=== PATIENT | male | born 1955 | race Caucasian/White ===

== ENCOUNTER 2020-05-15 06:35 | Inpatient (IN) ==
[2020-05-15] MEDS ORDERED: Papaverine 60 MG/2 ML VIAL IVP ONE (06:44)
[2020-05-15] MEDS ORDERED: *HR* FentaNYL (PF) 1,000 MCG/20 ML VIAL ONE (07:04)
[2020-05-15] MEDS ORDERED: *HR* Midazolam HCl 5 MG/5 ML VIAL IVP ONE (07:04)
[2020-05-15] MEDS ORDERED: *HR* Propofol 200 MG/20 ML VIAL IVP ONE (07:04)
[2020-05-15] MEDS ORDERED: *HR* Magnesium Sulfate 1 GM/2 ML VIAL ONE (07:05)
[2020-05-15] MEDS ORDERED: *HR* PHENYLEPHRINE 1,000 MCG/10 ML SYRINGE IVP ONE (07:05)
[2020-05-15] MEDS ORDERED: Famotidine 20 MG/2 ML VIAL ONE (07:05)
[2020-05-15] MEDS ORDERED: Dexamethasone 4 MG/ML VIAL ONE (07:05)
[2020-05-15] MEDS ORDERED: *HR* Rocuronium Bromide 50 MG/5 ML VIAL ONE ×3 (07:05→10:41)
[2020-05-15] MEDS ORDERED: Lidocaine 2% Syringe 100 MG/5 ML ONE (07:06)
[2020-05-15] MEDS ORDERED: Tranexamic Acid 1,000 MG/10 ML VIAL ONE (07:06)
[2020-05-15] MEDS ORDERED: Chlorhexidine Rinse 15 ML MOUTHWASH MM ONE (07:15)
[2020-05-15] MEDS ORDERED: Lidocaine -MPF 2% 2 ML VIAL ONE (07:35)
[2020-05-15] MEDS ORDERED: Dextrose 50 % in Water (Vial) 30 ML, Sodium Bicarbonate 20 MEQ, Lidocaine 1% 5 ML, Insu... TH ONE ×3 (07:45)
[2020-05-15] MEDS ORDERED: Heparin 15,000 UNIT in 0.9 % Sodium Chloride 500 ML IV ONE (07:45)
[2020-05-15] MEDS ORDERED: Norepinephrine 4 MG in 0.9 % Sodium Chloride 250 ML IVC PRN (07:45)
[2020-05-15] MEDS ORDERED: Insulin Human Regular 100 UNIT in 0.9 % Sodium Chloride 100 ML IV PRN (07:45)
[2020-05-15] MEDS ORDERED: Dextrose 50 % in Water (Vial) 30 ML, Sodium Bicarbonate 20 MEQ, Potassium Chloride 15 M... TH ONE (07:45)
[2020-05-15] MEDS: Ringers Solution, Lactated 1,000 ML IVC SCH (07:49)
[2020-05-15 08:37] LABS: ABG Base Excess -5 mEq/L (-2 to 3); ABG Chloride 103 mEq/L (98-107); ABG Glucose 155 mg/dL (60-95); ABG HCO3 20 mEq/L (21-27); ABG Oxygen Saturation 100 % (95-98); ABG PCO2 36 mmHg (35-45); ABG PH 7.36 pH Units (7.32-7.45); ABG PO2 509 mmHg (85-104); ABG TCO2 21 mEq/L (20-26)
[2020-05-15] MEDS: CeFAZolin Syr 2,000MG/20 ML 2,000 MG/20 ML SYRINGE IVPB ONE ×2 (08:50→10:56)
[2020-05-15 09:51] LABS: ABG Base Excess -5 mEq/L (-2 to 3); ABG Chloride 106 mEq/L (98-107); ABG Glucose 152 mg/dL (60-95); ABG HCO3 22 mEq/L (21-27); ABG Ionized Calcium 0.96 mmol/L (1.15-1.35); ABG Oxygen Saturation 99 % (95-98); ABG PCO2 44 mmHg (35-45); ABG PO2 130 mmHg (85-104); ABG TCO2 23 mEq/L (20-26)
[2020-05-15 10:28] LABS: ABG Base Excess -4 mEq/L (-2 to 3); ABG Chloride 98 mEq/L (98-107); ABG Glucose 223 mg/dL (60-95); ABG HCO3 20 mEq/L (21-27); ABG PCO2 32 mmHg (35-45); ABG PO2 > 630 mmHg (85-104); ABG TCO2 21 mEq/L (20-26)
[2020-05-15] MEDS ORDERED: Protamine Sulfate 250 MG/25 ML VIAL IVP ONE (10:36)
[2020-05-15] MEDS ORDERED: Albumin Human 5% 12.5 GM/250 ML IV.SOLN ONE (10:43)
[2020-05-15 10:53] LABS: ABG Base Excess -1 mEq/L (-2 to 3); ABG Chloride 97 mEq/L (98-107); ABG Glucose 191 mg/dL (60-95); ABG HCO3 24 mEq/L (21-27); ABG Oxygen Saturation 100 % (95-98); ABG PCO2 41 mmHg (35-45); ABG PH 7.38 pH Units (7.32-7.45); ABG PO2 583 mmHg (85-104); ABG TCO2 25 mEq/L (20-26)
[2020-05-15 11:19] LABS: ABG Base Excess -2 mEq/L (-2 to 3); ABG Chloride 99 mEq/L (98-107); ABG Glucose 144 mg/dL (60-95); ABG HCO3 24 mEq/L (21-27); ABG Ionized Calcium 1.13 mmol/L (1.15-1.35); ABG Oxygen Saturation 100 % (95-98); ABG PCO2 42 mmHg (35-45); ABG PH 7.36 pH Units (7.32-7.45); ABG PO2 547 mmHg (85-104); ABG TCO2 25 mEq/L (20-26)
[2020-05-15 11:38] LABS: ABG Base Excess -1 mEq/L (-2 to 3); ABG Chloride 99 mEq/L (98-107); ABG Glucose 128 mg/dL (60-95); ABG HCO3 25 mEq/L (21-27); ABG Ionized Calcium 1.05 mmol/L (1.15-1.35); ABG Oxygen Saturation 100 % (95-98); ABG PCO2 43 mmHg (35-45); ABG PH 7.37 pH Units (7.32-7.45); ABG PO2 556 mmHg (85-104); ABG TCO2 26 mEq/L (20-26)
[2020-05-15] MEDS ORDERED: Protamine Sulfate 50 MG/5 ML VIAL IVP ONE (12:02)
[2020-05-15 12:10] LABS: ABG Base Excess -3 mEq/L (-2 to 3); ABG Chloride 105 mEq/L (98-107); ABG Glucose 133 mg/dL (60-95); ABG HCO3 22 mEq/L (21-27); ABG Oxygen Saturation 99 % (95-98); ABG PCO2 42 mmHg (35-45); ABG PH 7.33 pH Units (7.32-7.45); ABG PO2 138 mmHg (85-104); ABG TCO2 24 mEq/L (20-26)
[2020-05-15] MEDS ORDERED: *HR* Dextrose 50 % in Water (Vial) 50 ML VIAL IVP PRN (12:29)
[2020-05-15] MEDS ORDERED: *HR* Promethazine 25 MG/ML VIAL IM PRN (12:29)
[2020-05-15] MEDS ORDERED: Albumin Human 5% 12.5 GM/250 ML IV.SOLN IVPB PRN (12:29)
[2020-05-15] MEDS ORDERED: Insulin Regular, Human 100 UNIT/ML IV PRN (12:29)
[2020-05-15] MEDS ORDERED: Ondansetron 4 MG/2 ML VIAL IVP PRN (12:29)
[2020-05-15] MEDS ORDERED: Naloxone 0.4 MG/ML INJ IVP PRN (12:29)
[2020-05-15] MEDS ORDERED: Potassium Chloride 40 MEQ/200 ML BAG IVPB PRN (12:29)
[2020-05-15] MEDS ORDERED: Acetaminophen 325 MG TABLET PO PRN (12:29)
[2020-05-15] MEDS: Norepinephrine 4 MG/254 ML IV.SOLN IVC SCH (12:45)
[2020-05-15 13:04] LABS: ABG Base Excess -1 mEq/L (-2 to 3); ABG HCO3 26 mEq/L (21-27); ABG Oxygen Saturation 92 % (95-98); ABG PCO2 57 mmHg (35-45); ABG PH 7.27 pH Units (7.32-7.45); ABG PO2 75 mmHg (85-104); ABG TCO2 28 mEq/L (20-26); Blood Gas Modality ASSIST CONTROL; Blood Gas VT 450 cc
[2020-05-15] MEDS: Insulin Human Regular 100 UNIT in 0.9 % Sodium Chloride 100 ML IVC SCH (13:15)
[2020-05-15] MEDS: 0.9 % Sodium Chloride 1,000 ML IVC SCH (13:15)
[2020-05-15] MEDS: niCARdipine 20 MG/200 ML MLS IVC SCH ×4 (13:15→23:04)
[2020-05-15 13:17] LABS: Basophils % 0.3 %; Eosinophils % 0.2 %; Hematocrit 30.4 % (37.5-50.1); Hemoglobin 10.7 g/dL (12.9-16.9); Immature Granulocytes % 0.9 % (0-4); Lymphocytes # 1.5 K/mcL (0.6-4.6); Lymphocytes % 12.5 %; Mean Corpuscular HGB Conc 35.2 g/dL (31.6-35.5); Mean Corpuscular Hemoglobin 35.1 pg (28.0-33.3); Mean Corpuscular Volume 99.7 fL (83.0-100.0); Mean Platelet Volume 8.5 fL (9.4-12.4); Monocytes # 0.8 K/mcL (0.0-1.3); Monocytes % 6.7 %; Neutrophils # 9.2 K/mcL (1.6-8.9); Platelet Count 86 K/mcL (140-400); Red Blood Count 3.05 M/mcL (4.19-5.50); Red Cell Distribution Width 12.8 % (11.5-14.5); Segmented Neutrophils % 79.4 %; White Blood Count 11.6 K/mcL (4.3-11.1)
[2020-05-15 13:23] LABS: INR 1.6; Prothrombin Time 18.6 Seconds (9.4-12.1)
[2020-05-15 13:26] LABS: Activated Partial Thrombo Time 28.3 Seconds (26.0-36.0)
[2020-05-15 13:34] LABS: BUN/Creatinine Ratio 11 (6-26); Blood Urea Nitrogen 9 mg/dL (8-23); Calcium 8.7 mg/dL (8.6-10.3); Carbon Dioxide 26 mEq/L (23-29); Chloride 106 mEq/L (98-107); Glucose 120 mg/dL (70-105); Magnesium 2.7 mg/dL (1.6-2.6); Osmolality,Calculated 282 (280-300); Potassium 4.3 mEq/L (3.5-5.1); Sodium 136 mEq/L (136-145); eGFR For African Americans > 60 (> 60); eGFR For Non-African Americans > 60 (> 60)
[2020-05-15] MEDS ORDERED: *HR* Heparin 10,000 UNIT/10 ML VIAL IVP ONE (13:40)
[2020-05-15] MEDS ORDERED: *HR* Magnesium Sulfate 2 GM/50 ML PIGGYBACK IVPB ONE (13:40)
[2020-05-15] MEDS ORDERED: Albumin Human 25% 25 GM/100 ML IV.SOLN IVPB ONE (13:40)
[2020-05-15] MEDS ORDERED: Mannitol 25% vial 12.5 GM/50 ML VIAL IVP ONE (13:40)
[2020-05-15] MEDS ORDERED: Heparin 1,000 UNITS/500 mL IV.SOLN IVC ONE (13:40)
[2020-05-15] MEDS ORDERED: D5% in Water 250 ML IV BAG IV ONE (13:40)
[2020-05-15] MEDS ORDERED: Tranexamic Acid 1,000 MG/10 ML VIAL IVP ONE (13:40)
[2020-05-15] MEDS ORDERED: *HR* Phenylephrine 10 MG/ML VIAL IVC ONE (13:40)
[2020-05-15] MEDS ORDERED: Lidocaine 2% Syringe 100 MG/5 ML IVP ONE (13:40)
[2020-05-15] MEDS: *HR* FentaNYL (PF) 100 MCG/2 ML VIAL IVP PRN ×4 (15:02→22:01)
[2020-05-15] MEDS: *HR* OxyCODONE/APAP 5/325 TABLET PO PRN ×3 (15:03→23:48)
[2020-05-15] MEDS: CeFAZolin 2 GM/120 ML BAG IVPB SCH ×2 (16:19→23:48)
[2020-05-15 16:27] LABS: ABG Base Excess 0 mEq/L (-2 to 3); ABG HCO3 25 mEq/L (21-27); ABG Oxygen Saturation 96 % (95-98); ABG PCO2 45 mmHg (35-45); ABG PH 7.36 pH Units (7.32-7.45); ABG PO2 88 mmHg (85-104); ABG TCO2 27 mEq/L (20-26); Blood Gas Modality CPAP/PS; Blood Gas Pressure Support 5 cm H2O
[2020-05-15 16:47] LABS: Hematocrit 31.5 % (37.5-50.1); Hemoglobin 11.2 g/dL (12.9-16.9)
[2020-05-15 17:44] LABS: ABG Base Excess 0 mEq/L (-2 to 3); ABG HCO3 24 mEq/L (21-27); ABG Oxygen Saturation 95 % (95-98); ABG PCO2 39 mmHg (35-45); ABG PO2 76 mmHg (85-104); ABG TCO2 25 mEq/L (20-26)
[2020-05-15] MEDS: Chlorhexidine Rinse 15 ML MOUTHWASH MM SCH (20:06)
[2020-05-16] MEDS: niCARdipine 20 MG/200 ML MLS IVC SCH ×3 (02:58→07:37)
[2020-05-16] MEDS: Ringers Solution, Lactated 1,000 ML IVC SCH (03:05)
[2020-05-16] MEDS: *HR* FentaNYL (PF) 100 MCG/2 ML VIAL IVP PRN (03:10)
[2020-05-16] MEDS: 0.9 % Sodium Chloride 1,000 ML IVC SCH (03:31)
[2020-05-16] MEDS: *HR* OxyCODONE/APAP 5/325 TABLET PO PRN ×5 (03:46→20:41)
[2020-05-16 04:16] LABS: Basophils % 0.1 %; Hemoglobin 9.8 g/dL (12.9-16.9); Mean Corpuscular Volume 100.4 fL (83.0-100.0)
[2020-05-16 04:18] LABS: Immature Granulocytes % 0.5 % (0-4); Immature Platelets 1.4 % (1.1-6.1); Lymphocytes # 1.1 K/mcL (0.6-4.6); Lymphocytes % 9.2 %; Mean Corpuscular Hemoglobin 35.1 pg (28.0-33.3); Mean Platelet Volume 8.8 fL (9.4-12.4); Monocytes # 1.1 K/mcL (0.0-1.3); Monocytes % 9.3 %; Neutrophils # 9.9 K/mcL (1.6-8.9); Platelet Count 127 K/mcL (140-400); Red Blood Count 2.79 M/mcL (4.19-5.50); Segmented Neutrophils % 80.9 %; White Blood Count 12.2 K/mcL (4.3-11.1)
[2020-05-16 05:38] LABS: BUN/Creatinine Ratio 15 (6-26); Blood Urea Nitrogen 13 mg/dL (8-23); Calcium 8.1 mg/dL (8.6-10.3); Carbon Dioxide 25 mEq/L (23-29); Chloride 104 mEq/L (98-107); Glucose 109 mg/dL (70-105); Osmolality,Calculated 279 (280-300); Potassium 4.3 mEq/L (3.5-5.1); Sodium 134 mEq/L (136-145); eGFR For African Americans > 60 (> 60); eGFR For Non-African Americans > 60 (> 60)
[2020-05-16] MEDS: Norepinephrine 4 MG/254 ML IV.SOLN IVC SCH (07:01)
[2020-05-16] MEDS: Chlorhexidine Rinse 15 ML MOUTHWASH MM SCH ×2 (07:36→20:42)
[2020-05-16] MEDS: Insulin Human Regular 100 UNIT in 0.9 % Sodium Chloride 100 ML IVC SCH (07:37)
[2020-05-16] MEDS ORDERED: Aspirin Enteric Coated 81 MG Tablet PO SCH (09:00)
[2020-05-16] MEDS ORDERED: Pantoprazole 40 MG VIAL IVP SCH (09:00)
[2020-05-16] MEDS ORDERED: Naloxone 0.4 MG/ML INJ IVP PRN (09:22)
[2020-05-16] MEDS ORDERED: *HR* FentaNYL (PF) 100 MCG/2 ML VIAL IVP PRN (09:22)
[2020-05-16] MEDS ORDERED: *HR* Promethazine 25 MG/ML VIAL IM PRN (09:22)
[2020-05-16] MEDS ORDERED: Acetaminophen 325 MG TABLET PO PRN (09:22)
[2020-05-16] MEDS ORDERED: D5% in Water 1,000 ML IVC PRN (09:22)
[2020-05-16] MEDS ORDERED: Dextrose Gel 15 GM/37.5 ML TUBE PO PRN ×2 (09:22)
[2020-05-16] MEDS ORDERED: *HR* Dextrose 50 % in Water (Vial) 50 ML VIAL IVP PRN (09:22)
[2020-05-16] MEDS ORDERED: Ondansetron 4 MG/2 ML VIAL IVP PRN (09:22)
[2020-05-16] MEDS: Ketorolac 15 MG/ML VIAL IVP SCH ×3 (11:05→23:23)
[2020-05-16] MEDS: Insulin LISPRO 300 UNITS/3 ML VIAL SUBQ SCH ×3 (11:05→20:49)
[2020-05-16] MEDS ORDERED: Ketorolac 15 MG/ML VIAL IVP SCH (12:00)
[2020-05-16] MEDS: *HR* Heparin 5,000 UNIT/ML VIAL SQ SCH (17:57)
[2020-05-17] MEDS: *HR* OxyCODONE/APAP 5/325 TABLET PO PRN (03:36)
[2020-05-17 03:56] LABS: Basophils % 0.3 %; Eosinophils % 0.1 %; Hematocrit 24.8 % (37.5-50.1); Hemoglobin 8.7 g/dL (12.9-16.9); Immature Granulocytes % 0.5 % (0-4); Lymphocytes # 2.5 K/mcL (0.6-4.6); Lymphocytes % 18.5 %; Mean Corpuscular HGB Conc 35.1 g/dL (31.6-35.5); Mean Corpuscular Hemoglobin 35.1 pg (28.0-33.3); Mean Platelet Volume 9.2 fL (9.4-12.4); Monocytes # 1.2 K/mcL (0.0-1.3); Monocytes % 8.8 %; Neutrophils # 9.6 K/mcL (1.6-8.9); Platelet Count 102 K/mcL (140-400); Red Blood Count 2.48 M/mcL (4.19-5.50); Red Cell Distribution Width 13.2 % (11.5-14.5); Segmented Neutrophils % 71.8 %; White Blood Count 13.3 K/mcL (4.3-11.1)
[2020-05-17 04:15] LABS: BUN/Creatinine Ratio 26 (6-26); Blood Urea Nitrogen 29 mg/dL (8-23); Calcium 8.3 mg/dL (8.6-10.3); Carbon Dioxide 25 mEq/L (23-29); Chloride 102 mEq/L (98-107); Glucose 184 mg/dL (70-105); Osmolality,Calculated 287 (280-300); Potassium 4.6 mEq/L (3.5-5.1); Sodium 133 mEq/L (136-145); eGFR For African Americans > 60 (> 60); eGFR For Non-African Americans > 60 (> 60)
[2020-05-17] MEDS: *HR* Heparin 5,000 UNIT/ML VIAL SQ SCH ×2 (05:43→17:10)
[2020-05-17] MEDS: Ketorolac 15 MG/ML VIAL IVP SCH ×4 (05:43→23:57)
[2020-05-17] MEDS: Aspirin Enteric Coated 81 MG Tablet PO SCH (07:24)
[2020-05-17] MEDS: Pantoprazole 40 MG VIAL IVP SCH (07:24)
[2020-05-17] MEDS: Chlorhexidine Rinse 15 ML MOUTHWASH MM SCH ×2 (07:24→20:41)
[2020-05-17] MEDS: Insulin LISPRO 300 UNITS/3 ML VIAL SUBQ SCH ×4 (07:24→20:41)
[2020-05-17] MEDS ORDERED: Amiodarone Premix 150 MG/100 ML BAG IVPB ONE (21:05)
[2020-05-17] MEDS ORDERED: Amiodarone Premix 360 MG/200 ML BAG IVC ONE (21:05)
[2020-05-17] MEDS: Amiodarone Premix 360 MG/200 ML BAG IVC SCH (22:15)
[2020-05-17] MEDS ORDERED: 0.9 % Sodium Chloride 500 ML IVC ONE (22:24)
[2020-05-17] MEDS ORDERED: 0.9 % Sodium Chloride 500 ML ONE (22:25)
[2020-05-17] MEDS ORDERED: 0.9 % Sodium Chloride 1,000 ML IVC SCH (23:30)
[2020-05-18 01:50] LABS: Basophils % 0.4 %; Eosinophils % 0.1 %; Hematocrit 24.5 % (37.5-50.1); Hemoglobin 8.4 g/dL (12.9-16.9); Immature Granulocytes % 0.6 % (0-4); Lymphocytes # 1.9 K/mcL (0.6-4.6); Lymphocytes % 16.9 %; Mean Corpuscular HGB Conc 34.3 g/dL (31.6-35.5); Mean Corpuscular Hemoglobin 35.4 pg (28.0-33.3); Mean Corpuscular Volume 103.4 fL (83.0-100.0); Mean Platelet Volume 9.3 fL (9.4-12.4); Monocytes # 0.7 K/mcL (0.0-1.3); Monocytes % 6.4 %; Neutrophils # 8.5 K/mcL (1.6-8.9); Platelet Count 132 K/mcL (140-400); Red Blood Count 2.37 M/mcL (4.19-5.50); Red Cell Distribution Width 13.3 % (11.5-14.5); Segmented Neutrophils % 75.6 %; White Blood Count 11.2 K/mcL (4.3-11.1)
[2020-05-18 02:09] LABS: BUN/Creatinine Ratio 22 (6-26); Blood Urea Nitrogen 24 mg/dL (8-23); Carbon Dioxide 25 mEq/L (23-29); Chloride 101 mEq/L (98-107); Glucose 253 mg/dL (70-105); Osmolality,Calculated 287 (280-300); Potassium 4.4 mEq/L (3.5-5.1); Sodium 132 mEq/L (136-145); eGFR For African Americans > 60 (> 60); eGFR For Non-African Americans > 60 (> 60)
[2020-05-18] MEDS: Ketorolac 15 MG/ML VIAL IVP SCH ×3 (06:26→16:34)
[2020-05-18] MEDS: *HR* Heparin 5,000 UNIT/ML VIAL SQ SCH ×2 (06:27→16:34)
[2020-05-18] MEDS: Insulin LISPRO 300 UNITS/3 ML VIAL SUBQ SCH ×4 (07:18→21:01)
[2020-05-18] MEDS: Aspirin Enteric Coated 81 MG Tablet PO SCH (07:29)
[2020-05-18] MEDS: Pantoprazole 40 MG VIAL IVP SCH (07:29)
[2020-05-18] MEDS: Chlorhexidine Rinse 15 ML MOUTHWASH MM SCH ×2 (07:29→21:06)
[2020-05-18] MEDS ORDERED: MOM Conc 10 ML UD.LIQ PO PRN (08:15)
[2020-05-18] MEDS: Amiodarone Premix 360 MG/200 ML BAG IVC SCH (09:02)
[2020-05-18] MEDS: *HR* Amiodarone 200 MG TABLET PO SCH ×2 (09:02→21:06)
[2020-05-18] MEDS: *HR* OxyCODONE/APAP 5/325 TABLET PO PRN (21:08)
[2020-05-19] MEDS: Ketorolac 15 MG/ML VIAL IVP SCH ×5 (00:07→23:55)
[2020-05-19 01:27] LABS: Basophils % 0.5 %; Eosinophils # 0.2 K/mcL (0.0-0.6); Eosinophils % 2.3 %; Hematocrit 22.4 % (37.5-50.1); Hemoglobin 7.6 g/dL (12.9-16.9); Immature Granulocytes % 0.4 % (0-4); Lymphocytes # 2.4 K/mcL (0.6-4.6); Lymphocytes % 29.9 %; Mean Corpuscular HGB Conc 33.9 g/dL (31.6-35.5); Mean Corpuscular Hemoglobin 34.4 pg (28.0-33.3); Mean Corpuscular Volume 101.4 fL (83.0-100.0); Mean Platelet Volume 8.9 fL (9.4-12.4); Monocytes # 0.6 K/mcL (0.0-1.3); Monocytes % 6.7 %; Neutrophils # 4.9 K/mcL (1.6-8.9); Platelet Count 124 K/mcL (140-400); Red Blood Count 2.21 M/mcL (4.19-5.50); Red Cell Distribution Width 12.8 % (11.5-14.5); Segmented Neutrophils % 60.2 %; White Blood Count 8.2 K/mcL (4.3-11.1)
[2020-05-19 01:48] LABS: BUN/Creatinine Ratio 19 (6-26); Blood Urea Nitrogen 20 mg/dL (8-23); Calcium 7.8 mg/dL (8.6-10.3); Carbon Dioxide 23 mEq/L (23-29); Chloride 105 mEq/L (98-107); Glucose 154 mg/dL (70-105); Osmolality,Calculated 284 (280-300); Sodium 134 mEq/L (136-145); eGFR For African Americans > 60 (> 60); eGFR For Non-African Americans > 60 (> 60)
[2020-05-19] MEDS: *HR* Heparin 5,000 UNIT/ML VIAL SQ SCH ×2 (06:36→16:26)
[2020-05-19] MEDS: Insulin LISPRO 300 UNITS/3 ML VIAL SUBQ SCH ×4 (07:55→19:48)
[2020-05-19] MEDS: Pantoprazole 40 MG VIAL IVP SCH (07:55)
[2020-05-19] MEDS: Chlorhexidine Rinse 15 ML MOUTHWASH MM SCH ×2 (07:55→19:43)
[2020-05-19] MEDS: *HR* Amiodarone 200 MG TABLET PO SCH ×2 (07:55→19:43)
[2020-05-19] MEDS: Aspirin Enteric Coated 81 MG Tablet PO SCH (07:55)
[2020-05-19] MEDS ORDERED: Furosemide 20 MG/2 ML VIAL IVP ONE (08:59)
[2020-05-20 01:48] LABS: Basophils % 0.4 %; Eosinophils # 0.3 K/mcL (0.0-0.6); Eosinophils % 3.6 %; Hemoglobin 7.7 g/dL (12.9-16.9); Immature Granulocytes % 0.7 % (0-4); Lymphocytes # 1.9 K/mcL (0.6-4.6); Lymphocytes % 26.5 %; Mean Corpuscular HGB Conc 33.5 g/dL (31.6-35.5); Mean Corpuscular Hemoglobin 34.7 pg (28.0-33.3); Mean Corpuscular Volume 103.6 fL (83.0-100.0); Mean Platelet Volume 9.4 fL (9.4-12.4); Monocytes # 0.6 K/mcL (0.0-1.3); Monocytes % 8.1 %; Neutrophils # 4.3 K/mcL (1.6-8.9); Platelet Count 161 K/mcL (140-400); Red Blood Count 2.22 M/mcL (4.19-5.50); Red Cell Distribution Width 12.8 % (11.5-14.5); Segmented Neutrophils % 60.7 %; White Blood Count 7.1 K/mcL (4.3-11.1)
[2020-05-20] MEDS: *HR* Heparin 5,000 UNIT/ML VIAL SQ SCH (06:30)
[2020-05-20] MEDS: Ketorolac 15 MG/ML VIAL IVP SCH (06:30)
[2020-05-20] MEDS: Insulin LISPRO 300 UNITS/3 ML VIAL SUBQ SCH (08:19)
[2020-05-20] MEDS: *HR* Amiodarone 200 MG TABLET PO SCH (08:19)
[2020-05-20] MEDS: Aspirin Enteric Coated 81 MG Tablet PO SCH (08:20)
[2020-05-20] MEDS: Chlorhexidine Rinse 15 ML MOUTHWASH MM SCH (08:20)
[2020-05-20 08:37] VITALS: BP 137/72
== END 2020-05-20 10:35 | disposition home or self-care (01) | DRG 235 ==
LOC: SAMDAY 06:35 → ICNU 07:37 → 2NNU 05-16 16:15
PROVIDERS: ADMIT Thoracic Surgery (Cardiothoracic Vascular Surgery); ATTEND Thoracic Surgery (Cardiothoracic Vascular Surgery)